=== PATIENT | female | born 1995 | race Caucasian/White ===

== ENCOUNTER 2016-07-01 13:13 | Emergency (ER) | payer OTHER ==
[~2016-07-01] VITALS: Ht 160 cm; Wt 60.3 kg
[2016-07-01 13:17] VITALS: TEMP 36.9; Ht 160 cm; Wt 60.3 kg
[2016-07-01] MEDS ORDERED: MECL1TAB40 PEG (13:46)
[2016-07-01] MEDS ORDERED: CYAN10005 PO (13:46)
[2016-07-01] MEDS ORDERED: SPR28 PO (13:46)
[2016-07-01] MEDS ORDERED: TOPI25TA99 PO (13:46)
[2016-07-01 14:11] LABS: HEMATOCRIT 37.5 % (37-47); MEAN CELL VOLUME 84.8 fL (80-100); MEAN CORPUSCULAR HEMOGLOBIN 28.3 pg (25-34); MEAN CORPUSCULAR HGB CONC 33.3 g/dl (32-36); MEAN PLATELET VOLUME 10.9 fL (7.4-10.4); PLATELET COUNT 261 K/uL (130-400); RED BLOOD COUNT 4.42 M/uL (4.2-5.4); WHITE BLOOD COUNT 7.05 K/uL (4.8-10.8)
[2016-07-01 14:23] LABS: BUN/CREATININE RATIO 10.1 (10-20); CALCIUM 8.7 mg/dl (8.5-10.1); CREATININE 0.75 mg/dl (0.60-1.20); POTASSIUM 3.6 mmol/L (3.5-5.1)
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
[2016-07-01 14:26] LABS: ALB/GLOB RATIO 0.9 (0.9-2)
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
[2016-07-01 14:39] LABS: BASO % 0.3 %; BASO ABS # 0.02 K/uL (0-0.2); COMPLETE YES; EOS % 1.8 %; IG% 0.1 %; LYMPH % 23.7 %; LYMPH ABS # 1.67 K/uL (1.2-3.4); MONO % 6.5 %; NEUT % 67.6 %
[2016-07-01] MEDS ORDERED: XYLOCAINE 1%/SOD BICARB 20 ML VIAL INFIL ONE (15:00)
[2016-07-01 15:07] LABS: MANUAL MICROSCOPIC REQUIRED? NO; REVIEW REQ? NO; URINE APPEARANCE CLEAR (CLEAR); URINE BILIRUBIN NEG (NEG); URINE COLOR YELLOW; URINE EPITHELIAL CELL AUTO >30 /lpf (0-5); URINE NITRITE NEG (NEG); URINE SPECIFIC GRAVITY 1.013 (1.000-1.030); UROBILINOGEN NEG (NEG); ZZUR CULT IF INDIC CLEAN CATCH YES
[2016-07-01] MEDS ORDERED: HYDR-5688 PO (15:35)
[2016-07-01 16:36] VITALS: BP 118/65; PULSE 86; O2SAT 95
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
== END 2016-07-01 16:41 | disposition home or self-care (01) ==
LOC: C.EDC 13:16
DX: S61.211A Laceration without foreign body of left index finger without damage to nail, initial encounter (principal); T14.8 Other injury of unspecified body region; V47.0XXA Car driver injured in collision with fixed or stationary object in nontraffic accident, initial encounter; Y93.89 Activity, other specified; Y99.8 Other external cause status